=== PATIENT | female | born 1955 | race Caucasian/White ===

== ENCOUNTER 2016-05-14 08:20 | Emergency (ER) | payer OTHER ==
[~2016-05-14] VITALS: Ht 152.4 cm; Wt 57.6 kg
[~2016-05-14 08:20] MED LIST: ACETAMINOPHEN325 M1 PO; ADVIL,NUPRIN,M200 MG PO; ADVIL200 MG PO; ANTI-DIARRHEA2 MG PO; ARTIFICIAL TEAR15 M1 BOTH EYES; ARTIFICIAL TEAR15 M3 BOTH EYES; ARTIFICIAL TEAR15 M6 BOTH EYES; ARTIFICIAL TEAR1510 BOTH EYES; AUGMENTIN PO; BENZTROPINE MESY1 MG PO; BENZTROPINE MESY2 MG PO; Biaxin PO; CALCIUM 600 +1 EAC1 PO; CALCIUM WITH VIT D; CARVEDILOL12.5 MG PO; CEFTIN500 MG PO; CELEXA20 MG PO; CELEXA40 MG PO; CICLOPIROX30 GM TP; CIPRO500 MG PO; CITALOPRAM HBR20 MG PO; CITALOPRAM HBR40 MG PO; CLARITIN10 M3 PO; CLARITIN10 MG PO; COGENTIN1 MG PO; COGENTIN2 MG PO; COLACE100 MG PO; COMPAZINE10 MG PO; Cogentin PO; DAILY VITE1 EAC1 PO; DESYREL 150 MG150 MG PO; DESYREL100 MG PO; DIAZEPAM10 MG PO; DOCUSATE SODIU100 MG PO; DURAGESIC12 MCG TD; ERYTHROMYC1 APPLICAT RIGHT EYE; FENTANYL1 EAC4 TD; FERROUS SULFAT325 MG PO; FLOXIN OTIC SOLN5 ML BOTH EARS; FORMULA E400 UNIT PO; GARAMYCIN5 M1 BOTH EYES; GENTEAL MILD25 ML BOTH EYES; GENTEAL MODERAT25 ML BOTH EYES; IBUPROFEN200 M1 PO; IMITREX50 MG PO; KEFLEX500 MG PO; LAMISIL250 MG PO; LIDEX 0.05% CRE60 GM TP; LIDODERM 5% P1 PATCH TD; LOPERAMIDE2 MG PO; LORATADINE10 M2 PO; MIRALAX17 GM PO; MOBIC7.5 MG PO; MOTRIN IB200 MG PO; MULTIVITAMIN1 EAC2 PO; MYLANTA 360 ML360 ML PO; NAVANE10 MG PO; NAVANE5 MG PO; OMEPRAZOLE20 MG PO; ONDANSETRON HCL4 MG PO; POLYETHYLENE GL17 GM PO; PRED FORTE100 DROP/5 RIGHT EYE; PRILOSEC20 MG PO; PROZAC20 MG PO; Protonix PO; Q-TUSSIN DM SY240 ML PO; QUETIAPINE FUM100 MG PO; QUETIAPINE FUMA25 MG GT; RANITIDINE HCL150 MG PO; RELPAX40 MG PO; REMERON15 M2 PO; ROBITUSSIN DM T10 ML PO; ROBITUSSIN DM118 ML PO; ROXICODONE5 MG PO; SEROQUEL100 MG PO; SEROQUEL12.5 MG PO; SEROQUEL50 MG PO; THIOTHIXENE10 MG PO; THIOTHIXENE5 MG PO; TRAZODONE HCL100 MG PO; TRAZODONE HCL150 MG PO; TRIPLE ANTIB28.35 GM TP; TUCKS1 EAC1 TP; TYLENOL REGULA325 MG PO; Tears Naturale II,Ar BOTH EYES; VALIUM10 MG PO; VANCOMYCIN HCL125 MG PO; VITAMIN E200 UNI2 PO; VITAMIN E400 UNIT PO; ZITHROMAX250 MG PO; ZOFRAN ODT4 MG PO; ZOFRAN ODT8 MG PO; ZOFRAN4 MG PO; ZOLOFT50 MG PO
[2016-05-14 08:24] VITALS: BP 147/88
[2016-05-14] MEDS ORDERED: SEROQUEL50 MG PO (09:09)
[2016-05-14] MEDS ORDERED: COGENTIN0.5 MG PO (09:13)
[2016-05-14] MEDS ORDERED: PROPRANOLOL HCL10 MG PO (09:14)
== END 2016-05-14 10:22 | disposition home or self-care (01) ==
LOC: EME 08:20
PROC: 0HQ0XZZ Repair Scalp Skin, External Approach (ICD-10-PCS; principal; 2016-05-14)
PROC: 3E0234Z Introduction of Serum, Toxoid and Vaccine into Muscle, Percutaneous Approach (ICD-10-PCS; 2016-05-14)
DX: S01.01XA Laceration without foreign body of scalp, initial encounter (principal); S93.401A Sprain of unspecified ligament of right ankle, initial encounter; W22.8XXA Striking against or struck by other objects, initial encounter; Y92.199 Unspecified place in other specified residential institution as the place of occurrence of the external cause; Q90.9 Down syndrome, unspecified; Z23 Encounter for immunization
CPT/HCPCS: 73610; 99281; 99284

== ENCOUNTER 2016-09-09 10:19 | Emergency (ER) | payer OTHER ==
[~2016-09-09] VITALS: Ht 165.1 cm; Wt 65.6 kg
[~2016-09-09 10:19] MED LIST changes: +COGENTIN0.5 MG PO; +PROPRANOLOL HCL10 MG PO
[2016-09-09 11:09] LABS: EOSINOPHIL (%) 0.6 % (0-5); EOSINOPHIL COUNT 0.1 K/uL (0-0.3); HEMATOCRIT 40.9 % (36.0-46.0); IMMATURE GRANULOCYTE (%) 0.4 % (0.0-0.7); INSTRUMENT ABS NEUTROPHIL CT 6.9 K/uL; LYMPHOCYTE COUNT 1.3 K/uL (1.0-2.8); MCH 29.6 PG (29.0-34.0); MCHC 32.8 G/DL (30.0-36.0); MCV 90.5 FL (83-99); MONOCYTE (%) 8.8 % (3-12); MONOCYTE COUNT 0.8 K/uL (0-0.8); NEUTROPHIL (%) 75.9 % (45-76); NEUTROPHIL COUNT 6.9 K/uL (1.8-6.4); PLATELET COUNT 191 K/uL (156-360); RBC DIS.WIDTH-CV 13.7 % (11.8-14.6); RBC DIS.WIDTH-SD 45.8 % (39-53); RED BLOOD COUNT 4.52 M/uL (3.80-5.20); WHITE BLOOD COUNT 9.1 K/uL (4.1-10.2)
[2016-09-09 11:17] LABS: CHLORIDE 102 mEq/L (99-109); POTASSIUM 3.9 mEq/L (3.7-5.4); SODIUM 137 mEq/L (136-147)
[2016-09-09 11:19] LABS: GLUCOSE 131 mg/dL (70-99)
[2016-09-09 11:19] LABS: ADD MIUA? NO; BILIRUBIN NEGATIVE; BLOOD NEGATIVE; COLOR COLORLESS ((YELLOW)); GLUCOSE (STRIP) NEGATIVE; KETONES NEGATIVE; LEUKOCYTES NEGATIVE; NITRITE NEGATIVE; PROTEIN (STRIP) NEGATIVE; SPECIFIC GRAVITY 1.003 (1.000-1.030); UCUL ADDED? NO; UROBILINOGEN 0.2 MG/DL (0.2-1.0)
[2016-09-09 11:20] LABS: ANION GAP 13 MEQ/L (2-14)
[2016-09-09 11:23] LABS: GFR ESTIMATE (CALCULATED) > 59 mL/min/
[2016-09-09 11:24] LABS: UREA NITROGEN (BUN) 10 mg/dL (9-23)
[2016-09-09 12:20] VITALS: BP 176/117
== END 2016-09-09 12:20 | disposition home or self-care (01) ==
LOC: EME 10:19
PROVIDERS: Emergency Medicine
DX: Q90.9 Down syndrome, unspecified (principal); F73 Profound intellectual disabilities; K21.9 Gastro-esophageal reflux disease without esophagitis; G43.909 Migraine, unspecified, not intractable, without status migrainosus; J45.909 Unspecified asthma, uncomplicated
CPT/HCPCS: 80048; 81003; 85025

== ENCOUNTER → 2016-10-31 | Outpatient (CLI) | payer OTHER ==
[~2016-10-31] MED LIST changes: +ATIVAN0.5 MG PO; +IMODIUM A-D2 M2 PO; +LACTULOSE10 GM/151 PO; +LISINOPRIL5 MG PO; +MILK OF MAGN PO
== END | disposition home or self-care (01) ==
DX: R13.11 Dysphagia, oral phase (principal); R09.89 Other specified symptoms and signs involving the circulatory and respiratory systems
CPT/HCPCS: 92611 GN

== ENCOUNTER 2016-11-05 09:53 | Inpatient (IN) | payer OTHER ==
[~2016-11-05] VITALS: Ht 165.1 cm; Wt 61.7 kg
[~2016-11-05 09:53] MED LIST changes: -ATIVAN0.5 MG PO; -IMODIUM A-D2 M2 PO; -LACTULOSE10 GM/151 PO; -LISINOPRIL5 MG PO; -MILK OF MAGN PO
[2016-11-05 10:59] LABS: EOSINOPHIL (%) 0 % (0-5); HEMATOCRIT 44.3 % (36.0-46.0); IMMATURE GRANULOCYTE (%) 0.8 % (0.0-0.7); IMMATURE GRANULOCYTE COUNT 0.1 K/uL; INSTRUMENT ABS NEUTROPHIL CT 12.9 K/uL; LYMPHOCYTE COUNT 0.9 K/uL (1.0-2.8); MCH 29.8 PG (29.0-34.0); MCHC 33.6 G/DL (30.0-36.0); MCV 88.6 FL (83-99); MEAN PLAT.VOLUME 10.1 uM^3 (9.5-12.4); MONOCYTE (%) 3.9 % (3-12); MONOCYTE COUNT 0.6 K/uL (0-0.8); NEUTROPHIL (%) 88.7 % (45-76); NEUTROPHIL COUNT 12.9 K/uL (1.8-6.4); PLATELET COUNT 216 K/uL (156-360); RBC DIS.WIDTH-SD 42.2 % (39-53); WHITE BLOOD COUNT 14.5 K/uL (4.1-10.2)
[2016-11-05 11:03] LABS: ADD MIUA? YES; BILIRUBIN NEGATIVE; BLOOD NEGATIVE; COLOR YELLOW ((YELLOW)); GLUCOSE (STRIP) >=500; KETONES NEGATIVE; LEUKOCYTES TRACE; NITRITE NEGATIVE; PROTEIN (STRIP) NEGATIVE; SPECIFIC GRAVITY 1.009 (1.000-1.030); UROBILINOGEN 0.2 MG/DL (0.2-1.0)
[2016-11-05 11:08] LABS: BACTERIA RARE /HPF; EPITHELIAL CELLS RARE /HPF; MUCUS TRACE /LPF; RED BLOOD CELLS 0-5 /HPF (0-5); UCUL ADDED? NO
[2016-11-05 11:10] LABS: CHLORIDE 96 mEq/L (99-109); POTASSIUM 4.1 mEq/L (3.7-5.4); SODIUM 136 mEq/L (136-147)
[2016-11-05 11:12] LABS: GLUCOSE 127 mg/dL (70-99)
[2016-11-05 11:13] LABS: ANION GAP 17 MEQ/L (2-14)
[2016-11-05 11:14] LABS: TOTAL BILIRUBIN 1.1 mg/dL (0.0-1.0)
[2016-11-05 11:16] LABS: ALKALINE PHOSPHATASE 84 IU/L (3-129); GFR ESTIMATE (CALCULATED) > 59 mL/min/
[2016-11-05 11:17] LABS: UREA NITROGEN (BUN) 14 mg/dL (9-23)
[2016-11-05 11:19] LABS: TROP-I INTERPRETATION NEGATIVE; TROPONIN-I < 0.01 ng/mL (0.0-0.30)
[2016-11-05] MEDS ORDERED: ATIVAN0.5 MG PO (14:06)
[2016-11-05] MEDS ORDERED: LISINOPRIL5 MG PO (14:08)
[2016-11-05] MEDS ORDERED: IMODIUM A-D2 M2 PO (14:11)
[2016-11-05] MEDS ORDERED: LACTULOSE10 GM/151 PO (14:13)
[2016-11-05] MEDS ORDERED: MILK OF MAGN PO (14:14)
[2016-11-05] MEDS ORDERED: ZOFRAN4 MG PO (14:17)
[2016-11-05 23:30] VITALS: BP 104/58
[2016-11-06 08:05] VITALS: BP 126/92
[2016-11-06 16:08] VITALS: BP 130/96
[2016-11-07 05:50] VITALS: BP 138/77
[2016-11-07 06:35] VITALS: BP 138/74
[2016-11-07 08:00] VITALS: BP 140/98
[2016-11-07 16:00] VITALS: BP 162/88
[2016-11-08 00:51] VITALS: BP 155/91
[2016-11-08 06:35] LABS: EOSINOPHIL (%) 1.3 % (0-5); EOSINOPHIL COUNT 0.1 K/uL (0-0.3); HEMATOCRIT 34.6 % (36.0-46.0); IMMATURE GRANULOCYTE (%) 1.4 % (0.0-0.7); IMMATURE GRANULOCYTE COUNT 0.1 K/uL; INSTRUMENT ABS NEUTROPHIL CT 6.5 K/uL; LYMPHOCYTE COUNT 2.3 K/uL (1.0-2.8); MCH 31.1 PG (29.0-34.0); MCHC 35.5 G/DL (30.0-36.0); MCV 87.4 FL (83-99); MEAN PLAT.VOLUME 10.2 uM^3 (9.5-12.4); MONOCYTE (%) 12.4 % (3-12); MONOCYTE COUNT 1.3 K/uL (0-0.8); NEUTROPHIL (%) 62.6 % (45-76); NEUTROPHIL COUNT 6.5 K/uL (1.8-6.4); PLATELET COUNT 205 K/uL (156-360); RBC DIS.WIDTH-SD 41.9 % (39-53); WHITE BLOOD COUNT 10.3 K/uL (4.1-10.2)
[2016-11-08 06:44] LABS: RED BLOOD COUNT 3.96 M/uL (3.80-5.20)
[2016-11-08 08:40] VITALS: BP 132/71
[2016-11-08] MEDS ORDERED: CEFTIN500 MG PO (11:28)
[2016-11-08 13:14] VITALS: BP 125/68
[2016-11-08 19:06] VITALS: BP 136/86
[2016-11-08 23:26] VITALS: BP 155/82
[2016-11-09 03:10] VITALS: BP 125/79
[2016-11-09 07:40] VITALS: BP 125/87
[2016-11-09 11:26] VITALS: BP 131/82
[2016-11-09 15:44] VITALS: BP 137/77
[2016-11-09 23:03] VITALS: BP 144/88
[2016-11-10 07:37] VITALS: BP 136/73
[2016-11-10 15:59] VITALS: BP 129/71
[2016-11-10 22:42] VITALS: BP 103/63
[2016-11-11 11:30] VITALS: BP 162/86
== END 2016-11-11 16:45 | disposition home or self-care (01) | DRG 197 ==
LOC: DELPENDDIS → EME 09:53 → 5EAST 14:05 → EDOF 14:05 → ENRESERV 16:04 → 5EAST 18:08 → ENPENDDIS 11-08 → 5EAST 11-11 16:45
PROVIDERS: Emergency Medicine; Internal Medicine
DX: J84.9 Interstitial pulmonary disease, unspecified (principal); F72 Severe intellectual disabilities; I10 Essential (primary) hypertension; J45.909 Unspecified asthma, uncomplicated; K21.9 Gastro-esophageal reflux disease without esophagitis; F29 Unspecified psychosis not due to a substance or known physiological condition; F41.0 Panic disorder [episodic paroxysmal anxiety]; F63.81 Intermittent explosive disorder; F41.9 Anxiety disorder, unspecified; F32.9 Major depressive disorder, single episode, unspecified; L30.9 Dermatitis, unspecified; Q90.9 Down syndrome, unspecified
CPT/HCPCS: 71010; 80053; 81003; 83605; 84484; 85025; 87040; 99202; 99281; 99285; J0456; J0696; J1630; J1650; J7050

== ENCOUNTER 2016-11-12 18:47 | Emergency (ER) | payer OTHER ==
[~2016-11-12] VITALS: Ht 157.5 cm; Wt 63.7 kg
[~2016-11-12 18:47] MED LIST changes: +ATIVAN0.5 MG PO; +IMODIUM A-D2 M2 PO; +LACTULOSE10 GM/151 PO; +LISINOPRIL5 MG PO; +MILK OF MAGN PO
[2016-11-12 19:55] LABS: HEMATOCRIT 42.6 % (36.0-46.0); MCH 29.7 PG (29.0-34.0); MCHC 32.9 G/DL (30.0-36.0); MCV 90.3 FL (83-99); MEAN PLAT.VOLUME 9.6 uM^3 (9.5-12.4); PLATELET COUNT 215 K/uL (156-360); RBC DIS.WIDTH-SD 46.5 % (39-53); RED BLOOD COUNT 4.72 M/uL (3.80-5.20); WHITE BLOOD COUNT 8.4 K/uL (4.1-10.2)
[2016-11-12 20:02] LABS: CHLORIDE 100 mEq/L (99-109); POTASSIUM 3.9 mEq/L (3.7-5.4); SODIUM 135 mEq/L (136-147)
[2016-11-12 20:04] LABS: GLUCOSE 129 mg/dL (70-99)
[2016-11-12 20:05] LABS: ANION GAP 9 MEQ/L (2-14)
[2016-11-12 20:06] LABS: TOTAL BILIRUBIN 0.3 mg/dL (0.0-1.0)
[2016-11-12 20:07] LABS: ALKALINE PHOSPHATASE 83 IU/L (3-129)
[2016-11-12 20:08] LABS: GFR ESTIMATE (CALCULATED) > 59 mL/min/
[2016-11-12 20:09] LABS: UREA NITROGEN (BUN) 7 mg/dL (9-23)
[2016-11-13] MEDS ORDERED: ZOFRAN ODT4 MG PO (00:30)
[2016-11-13 01:46] VITALS: BP 132/97
[2016-11-14] MEDS ORDERED: ZOFRAN4 MG PO (19:04)
== END 2016-11-13 01:13 | disposition home or self-care (01) ==
LOC: EME 18:47
PROVIDERS: Emergency Medicine
DX: R11.10 Vomiting, unspecified (principal); Q90.9 Down syndrome, unspecified; K21.9 Gastro-esophageal reflux disease without esophagitis; Z90.49 Acquired absence of other specified parts of digestive tract
CPT/HCPCS: 80053; 85027; 93005; 99281; 99284; J2405; J7030

== ENCOUNTER 2016-11-14 16:26 | Emergency (ER) | payer OTHER ==
[~2016-11-14] VITALS: Ht 152.4 cm; Wt 62.4 kg
[2016-11-14 18:26] LABS: HEMATOCRIT 39.4 % (36.0-46.0); MCH 29.6 PG (29.0-34.0); MCHC 32.5 G/DL (30.0-36.0); MEAN PLAT.VOLUME 9.3 uM^3 (9.5-12.4); PLATELET COUNT 212 K/uL (156-360); RBC DIS.WIDTH-CV 13.8 % (11.8-14.6); RBC DIS.WIDTH-SD 46.4 % (39-53); RED BLOOD COUNT 4.33 M/uL (3.80-5.20); WHITE BLOOD COUNT 8.5 K/uL (4.1-10.2)
[2016-11-14 18:37] LABS: CHLORIDE 100 mEq/L (99-109); POTASSIUM 3.6 mEq/L (3.7-5.4); SODIUM 138 mEq/L (136-147)
[2016-11-14 18:38] LABS: GLUCOSE 99 mg/dL (70-99)
[2016-11-14 18:40] LABS: ANION GAP 11 MEQ/L (2-14)
[2016-11-14 18:42] LABS: GFR ESTIMATE (CALCULATED) > 59 mL/min/
[2016-11-14 18:43] LABS: UREA NITROGEN (BUN) 6 mg/dL (9-23)
[2016-11-14] MEDS ORDERED: ZOFRAN4 MG PO (19:04)
[2016-11-14 19:13] VITALS: BP 158/97
== END 2016-11-14 19:15 | disposition home or self-care (01) ==
LOC: EME 16:26
PROVIDERS: Emergency Medicine
DX: R11.2 Nausea with vomiting, unspecified (principal); E86.0 Dehydration; Q90.9 Down syndrome, unspecified; J45.909 Unspecified asthma, uncomplicated; K21.9 Gastro-esophageal reflux disease without esophagitis; F32.9 Major depressive disorder, single episode, unspecified; F42.9 Obsessive-compulsive disorder, unspecified; F73 Profound intellectual disabilities; Z88.0 Allergy status to penicillin
CPT/HCPCS: 71020; 74176; 80048; 85027; 99281; 99284

== ENCOUNTER 2017-01-05 09:35 | Emergency (ER) | payer OTHER ==
[~2017-01-05] VITALS: Ht 154.9 cm; Wt 64.1 kg
[2017-01-05 10:36] LABS: EOSINOPHIL (%) 0.5 % (0-5); EOSINOPHIL COUNT 0.1 K/uL (0-0.3); HEMATOCRIT 38.5 % (36.0-46.0); IMMATURE GRANULOCYTE (%) 0.6 % (0.0-0.7); IMMATURE GRANULOCYTE COUNT 0.1 K/uL; INSTRUMENT ABS NEUTROPHIL CT 8.5 K/uL; LYMPHOCYTE COUNT 1.3 K/uL (1.0-2.8); MCH 29.6 PG (29.0-34.0); MCHC 33.2 G/DL (30.0-36.0); MCV 89.1 FL (83-99); MEAN PLAT.VOLUME 10.1 uM^3 (9.5-12.4); MONOCYTE (%) 11.2 % (3-12); MONOCYTE COUNT 1.2 K/uL (0-0.8); NEUTROPHIL COUNT 8.5 K/uL (1.8-6.4); PLATELET COUNT 203 K/uL (156-360); RBC DIS.WIDTH-CV 12.9 % (11.8-14.6); RBC DIS.WIDTH-SD 42.4 % (39-53); RED BLOOD COUNT 4.32 M/uL (3.80-5.20); WHITE BLOOD COUNT 11.1 K/uL (4.1-10.2)
[2017-01-05 10:44] LABS: CHLORIDE 101 mEq/L (99-109); POTASSIUM 3.8 mEq/L (3.7-5.4); SODIUM 139 mEq/L (136-147)
[2017-01-05 10:46] LABS: GLUCOSE 93 mg/dL (70-99)
[2017-01-05 10:47] LABS: ANION GAP 12 MEQ/L (2-14)
[2017-01-05 10:48] LABS: TOTAL BILIRUBIN 0.5 mg/dL (0.0-1.0)
[2017-01-05 10:49] LABS: ALKALINE PHOSPHATASE 68 IU/L (3-129)
[2017-01-05 10:50] LABS: GFR ESTIMATE (CALCULATED) > 59 mL/min/
[2017-01-05 10:51] LABS: UREA NITROGEN (BUN) 14 mg/dL (9-23)
[2017-01-05 13:18] LABS: ADD MIUA? YES; BILIRUBIN NEGATIVE; BLOOD SMALL; COLOR YELLOW ((YELLOW)); GLUCOSE (STRIP) NEGATIVE; KETONES NEGATIVE; LEUKOCYTES NEGATIVE; NITRITE NEGATIVE; PROTEIN (STRIP) NEGATIVE; SPECIFIC GRAVITY 1.012 (1.000-1.030); UROBILINOGEN 0.2 MG/DL (0.2-1.0)
[2017-01-05 13:22] LABS: BACTERIA NONE SEEN /HPF; EPITHELIAL CELLS RARE /HPF; MUCUS NONE SEEN /LPF; RED BLOOD CELLS NONE SEEN /HPF (0-5); UCUL ADDED? NO; WHITE BLOOD CELLS 0-5 /HPF (0-5)
[2017-01-05 15:07] VITALS: BP 147/93
== END 2017-01-05 15:08 | disposition home or self-care (01) ==
LOC: EME 09:35
PROVIDERS: Emergency Medicine
DX: F73 Profound intellectual disabilities (principal); R41.82 Altered mental status, unspecified; F42.9 Obsessive-compulsive disorder, unspecified; R45.1 Restlessness and agitation; Q90.9 Down syndrome, unspecified
CPT/HCPCS: 71010; 80053; 81003; 85025; 99281; 99284; J1630; J2060

== ENCOUNTER 2017-07-26 20:35 | Emergency (ER) | payer OTHER ==
[~2017-07-26] VITALS: Ht 152.4 cm; Wt 60.0 kg
[2017-07-26 22:03] LABS: HEMATOCRIT 35.4 % (36.0-46.0); HEMOGLOBIN 12.7 G/DL (11.9-15.5); MCH 31.4 PG (29.0-34.0); MCHC 35.9 G/DL (30.0-36.0); MCV 87.6 FL (83-99); PLATELET COUNT 196 K/uL (156-360); RBC DIS.WIDTH-SD 41.7 % (39-53); RED BLOOD COUNT 4.04 M/uL (3.80-5.20); WHITE BLOOD COUNT 12.6 K/uL (4.1-10.2)
[2017-07-26 22:12] LABS: ALBUMIN 3.9 g/dL (3.2-4.8)
[2017-07-26 22:13] LABS: CHLORIDE 96 mEq/L (99-109); POTASSIUM 3.2 mEq/L (3.7-5.4); SODIUM 130 mEq/L (136-147)
[2017-07-26 22:15] LABS: GLUCOSE 124 mg/dL (70-99)
[2017-07-26 22:17] LABS: TOTAL BILIRUBIN 0.5 mg/dL (0.0-1.0)
[2017-07-26 22:18] LABS: ALKALINE PHOSPHATASE 90 IU/L (3-129)
[2017-07-26 22:19] LABS: GFR ESTIMATE (CALCULATED) > 59 mL/min/
[2017-07-26 22:20] LABS: AST (GOT) 27 IU/L (2-34); UREA NITROGEN (BUN) 18 mg/dL (9-23)
[2017-07-26 22:22] LABS: ALT (GPT) 21 IU/L (3-49)
[2017-07-26 22:24] LABS: TROP-I INTERPRETATION NEGATIVE; TROPONIN-I < 0.01 ng/mL (0.0-0.30)
[2017-07-26 23:17] LABS: APPEARANCE CLEAR ((CLEAR)); BILIRUBIN NEGATIVE; BLOOD NEGATIVE; COLOR YELLOW ((YELLOW)); GLUCOSE (STRIP) NEGATIVE; KETONES NEGATIVE; LEUKOCYTES NEGATIVE; NITRITE NEGATIVE; PROTEIN (STRIP) NEGATIVE; UCUL ADDED? NO; UROBILINOGEN 0.2 MG/DL (0.2-1.0)
[2017-07-27] MEDS ORDERED: ZITHROMAX Z-PA250 MG PO (01:07)
[2017-07-27 01:51] VITALS: BP 141/97
== END 2017-07-27 01:55 | disposition home or self-care (01) ==
LOC: EME → EDBD 20:35 → EME 20:35
PROVIDERS: Emergency Medicine
DX: J06.9 Acute upper respiratory infection, unspecified (principal); H66.90 Otitis media, unspecified, unspecified ear; R41.82 Altered mental status, unspecified; Q90.9 Down syndrome, unspecified; F73 Profound intellectual disabilities; K21.9 Gastro-esophageal reflux disease without esophagitis; F32.9 Major depressive disorder, single episode, unspecified; F41.9 Anxiety disorder, unspecified; Z90.49 Acquired absence of other specified parts of digestive tract; Z88.0 Allergy status to penicillin; Z88.8 Allergy status to other drugs, medicaments and biological substances
CPT/HCPCS: 70450; 71045; 80053; 81003; 84484; 85027; 99281; 99285; J1630; J2060; J2765

== ENCOUNTER 2017-12-01 22:12 | Inpatient (IN) | payer OTHER ==
[~2017-12-01] VITALS: Ht 160 cm; Wt 61.4 kg
[~2017-12-01 22:12] MED LIST changes: +ZITHROMAX Z-PA250 MG PO
[2017-12-01 22:53] LABS: BASOPHIL (%) 0.3 % (0-1); EOSINOPHIL (%) 0.3 % (0-5); HEMATOCRIT 38.2 % (36.0-46.0); HEMOGLOBIN 13.6 G/DL (11.9-15.5); IMMATURE GRANULOCYTE (%) 0.5 % (0.0-0.7); LYMPHOCYTE (%) 4.2 % (15-42); LYMPHOCYTE COUNT 0.4 K/uL (1.0-2.8); MCH 31.1 PG (29.0-34.0); MCHC 35.6 G/DL (30.0-36.0); MCV 87.4 FL (83-99); MONOCYTE (%) 1.5 % (3-12); MONOCYTE COUNT 0.2 K/uL (0-0.8); NEUTROPHIL (%) 93.2 % (45-76); NEUTROPHIL COUNT 9.6 K/uL (1.8-6.4); RBC DIS.WIDTH-CV 12.8 % (11.8-14.6); RBC DIS.WIDTH-SD 41.1 % (39-53); RED BLOOD COUNT 4.37 M/uL (3.80-5.20); WHITE BLOOD COUNT 10.3 K/uL (4.1-10.2)
[2017-12-01 23:01] LABS: ALBUMIN 4.2 g/dL (3.2-4.8)
[2017-12-01 23:02] LABS: CHLORIDE 92 mEq/L (99-109); POTASSIUM 3.1 mEq/L (3.7-5.4); SODIUM 128 mEq/L (136-147)
[2017-12-01 23:04] LABS: GLUCOSE 197 mg/dL (70-99); TOTAL PROTEIN 6.6 g/dL (6.4-8.3)
[2017-12-01 23:06] LABS: TOTAL BILIRUBIN 0.4 mg/dL (0.0-1.0)
[2017-12-01 23:07] LABS: ALKALINE PHOSPHATASE 91 IU/L (3-129)
[2017-12-01 23:08] LABS: CREATININE 0.9 mg/dL (0.6-1.3); GFR ESTIMATE (CALCULATED) > 59 mL/min/
[2017-12-01 23:09] LABS: AST (GOT) 20 IU/L (2-34); UREA NITROGEN (BUN) 13 mg/dL (9-23)
[2017-12-01 23:10] LABS: ALT (GPT) 21 IU/L (3-49)
[2017-12-01 23:11] LABS: LIPASE 27 U/L (1.0-51.0)
[2017-12-01 23:59] LABS: PLATELET COUNT 81 K/uL (156-360)
[2017-12-02 00:19] LABS: APPEARANCE CLEAR ((CLEAR)); BILIRUBIN NEGATIVE; BLOOD NEGATIVE; COLOR STRAW ((YELLOW)); GLUCOSE (STRIP) >=500; KETONES 5; LEUKOCYTES NEGATIVE; NITRITE NEGATIVE; PROTEIN (STRIP) NEGATIVE; UCUL ADDED? NO; UROBILINOGEN 0.2 MG/DL (0.2-1.0)
[2017-12-02 07:12] LABS: BASOPHIL (%) 0.1 % (0-1); EOSINOPHIL (%) 0.1 % (0-5); HEMATOCRIT 38.4 % (36.0-46.0); HEMOGLOBIN 13.7 G/DL (11.9-15.5); IMMATURE GRANULOCYTE (%) 0.7 % (0.0-0.7); LYMPHOCYTE (%) 3.6 % (15-42); LYMPHOCYTE COUNT 0.4 K/uL (1.0-2.8); MCH 30.5 PG (29.0-34.0); MCHC 35.7 G/DL (30.0-36.0); MCV 85.5 FL (83-99); MONOCYTE (%) 2.3 % (3-12); MONOCYTE COUNT 0.3 K/uL (0-0.8); NEUTROPHIL (%) 93.2 % (45-76); NEUTROPHIL COUNT 10.6 K/uL (1.8-6.4); PLATELET COUNT 262 K/uL (156-360); RBC DIS.WIDTH-CV 12.9 % (11.8-14.6); RBC DIS.WIDTH-SD 40.1 % (39-53); RED BLOOD COUNT 4.49 M/uL (3.80-5.20); WHITE BLOOD COUNT 11.4 K/uL (4.1-10.2)
[2017-12-02 07:34] LABS: CHLORIDE 92 MEQ/L (99-109); CREATININE 0.7 MG/DL (0.6-1.3); GFR ESTIMATE (CALCULATED) > 59 mL/min/; GLUCOSE 165 mg/dL (70-99); SODIUM 128 MEQ/L (136-147); UREA NITROGEN (BUN) 11 mg/dL (9-23)
[2017-12-02] MEDS ORDERED: PROZAC20 MG PO (07:44)
[2017-12-02] MEDS ORDERED: CALCIUM 600 +1 EAC1 PO (07:44)
[2017-12-02] MEDS ORDERED: SEROQUEL100 MG PO (07:45)
[2017-12-02] MEDS ORDERED: DESYREL100 MG PO (07:46)
[2017-12-02] MEDS ORDERED: COLACE100 MG PO (07:47)
[2017-12-02] MEDS ORDERED: COGENTIN0.5 MG PO (07:47)
[2017-12-02] MEDS ORDERED: ATIVAN0.5 MG PO (07:48)
[2017-12-02] MEDS ORDERED: HYZAAR 100-21 TABLET PO (07:49)
[2017-12-02] MEDS ORDERED: NAVANE5 MG PO (07:49)
[2017-12-02] MEDS ORDERED: TYLENOL REGULA325 MG PO (07:50)
[2017-12-02] MEDS ORDERED: DULCOLAX5 MG PO (07:51)
[2017-12-02] MEDS ORDERED: IMODIUM A-D2 M2 PO (07:51)
[2017-12-02] MEDS ORDERED: VALIUM10 MG PO (07:52)
[2017-12-02] MEDS ORDERED: ROBAFEN DM COU118 M1 PO (07:53)
[2017-12-02] MEDS ORDERED: IMITREX50 MG PO (07:53)
[2017-12-02] MEDS ORDERED: ZOFRAN4 MG PO (07:53)
[2017-12-02] MEDS ORDERED: TRIPLE ANTIB28.35 GM TP (07:54)
[2017-12-02 12:26] VITALS: BP 145/79
[2017-12-02 15:18] VITALS: BP 143/84
[2017-12-03 00:51] VITALS: BP 111/61
[2017-12-03 07:10] VITALS: BP 126/90
[2017-12-03 09:41] LABS: CREATININE 0.7 MG/DL (0.6-1.3); GFR ESTIMATE (CALCULATED) > 59 mL/min/; GLUCOSE 89 mg/dL (70-99); UREA NITROGEN (BUN) 16 mg/dL (9-23)
[2017-12-03 09:42] LABS: CHLORIDE 106 MEQ/L (99-109); POTASSIUM 3.9 MEQ/L (3.7-5.4); SODIUM 138 MEQ/L (136-147)
[2017-12-03 16:05] VITALS: BP 144/84
[2017-12-03 23:49] VITALS: BP 115/62
[2017-12-04 07:47] VITALS: BP 142/80
[2017-12-04 10:27] LABS: HEMATOCRIT 38.1 % (36.0-46.0); HEMOGLOBIN 12.8 G/DL (11.9-15.5); MCH 30.8 PG (29.0-34.0); MCHC 33.6 G/DL (30.0-36.0); PLATELET COUNT 205 K/uL (156-360); RBC DIS.WIDTH-CV 13.6 % (11.8-14.6); RBC DIS.WIDTH-SD 46.3 % (39-53); RED BLOOD COUNT 4.15 M/uL (3.80-5.20)
[2017-12-04 10:28] LABS: MCV 91.8 FL (83-99)
[2017-12-04 10:51] LABS: CHLORIDE 105 MEQ/L (99-109); CREATININE 0.7 MG/DL (0.6-1.3); GFR ESTIMATE (CALCULATED) > 59 mL/min/; GLUCOSE 89 mg/dL (70-99); POTASSIUM 3.6 MEQ/L (3.7-5.4); SODIUM 139 MEQ/L (136-147); UREA NITROGEN (BUN) 20 mg/dL (9-23)
== END 2017-12-04 14:42 | disposition home or self-care (01) | DRG 389 ==
LOC: EME → EDBD 22:12 → EME 22:12 → EDOF 12-02 02:03 → ENRESERV 12-02 02:05 → EDOF 12-02 03:01 → 5EAST 12-02 03:01 → ENRESERV 12-02 03:02 → 5EAST 12-02 12:20
PROVIDERS: Emergency Medicine; Hospitalist; Nurse Practitioner Family
DX: K56.41 Fecal impaction (principal); K62.89 Other specified diseases of anus and rectum; E87.1 Hypo-osmolality and hyponatremia; E87.6 Hypokalemia; Q90.9 Down syndrome, unspecified; F73 Profound intellectual disabilities; F06.8 Other specified mental disorders due to known physiological condition; G40.909 Epilepsy, unspecified, not intractable, without status epilepticus; F42.9 Obsessive-compulsive disorder, unspecified; I10 Essential (primary) hypertension; K21.9 Gastro-esophageal reflux disease without esophagitis; D64.9 Anemia, unspecified; F32.9 Major depressive disorder, single episode, unspecified; F41.9 Anxiety disorder, unspecified; L30.9 Dermatitis, unspecified
CPT/HCPCS: 70450; 71045; 74018; 74177; 80048; 80053; 81003; 82436; 83605; 83690; 84133; 84300; 84443; 85025; 85027; 85049; 87040; 99281; 99285; J1630; J1644; J2405; J2765; J3480; J7030